=== PATIENT | male | born 1960 | race African-American/Black ===

== ENCOUNTER 2016-12-20 12:03 | Emergency (ER) | payer MEDICARE, OTHER ==
[2016-12-20 12:06] VITALS: TEMP 97.6
[2016-12-20] MEDS ORDERED: ONDANSETRON 4 MG/2 ML VIAL IVP STA (12:35)
--- NOTE | 2016-12-20 12:39 | ED ---
Nausea/Vomiting/Diarrhea HPI - General Chief complaint: Nausea/Vomiting/Diarrhea Stated complaint: Vomiting Time Seen by Provider: 12/20/16 12:29 Source: EMS Mode of arrival: EMS Limitations: no limitations - History of Present Illness Initial comments: This patient is a 56-year-old man who presents to be evaluated for nausea, vomiting, diarrhea and some abdominal pain. He states that things came on around 8 this morning. He had a few episodes of vomiting and also couple episodes of watery diarrhea. The patient was concerned that he had eaten some chicken that may not been quite right yesterday. Patient states that since arriving here his symptoms have for the most part resolved. He is currently not having any pain or vomiting. MD complaint: nausea, vomiting, diarrhea, abdominal pain Onset/Timin -: hour(s) Description of Vomiting: food contents Description of Diarrhea: water Associated Abdominal Pain: Yes Location: periumbilical Radiation: none Severity: moderate Quality: cramping Consistency: now resolved Improves with: none Worsens with: none Context: possible food poisoning - Related Data Previous Rx's Medication Instructions Recorded Ondansetron Odt [Zofran ODT] 4 mg PO Q8HR PRN #10 tab 12/20/16 Allergies Allergy/AdvReac Type Severity Reaction Status Date / Time No Known Allergies Allergy Verified 12/20/16 13:28 Review of Systems ROS Statement: Those systems with pertinent positive or pertinent negative responses have been documented in the HPI. ROS Other: All systems not noted in ROS Statement are negative. Constitutional: Denies: fever, chills, weakness Respiratory: Denies: cough, dyspnea Cardiovascular: Denies: chest pain, palpitations, syncope Gastrointestinal: Reports: abdominal pain, nausea, vomiting, diarrhea. Denies: hematemesis, melena, hematochezia Genitourinary: Denies: dysuria, hematuria Musculoskeletal: Denies: back pain Skin: Denies: rash Neurological: Denies: headache, weakness, numbness Past Medical History Past Medical History: No Reported History History of Any Multi-Drug Resistant Organisms: None Reported Past Surgical History: No Surgical Hx Reported Past Psychological History: No Psychological Hx Reported Smoking Status: Current every day smoker Past Alcohol Use History: None Reported Past Drug Use History: Marijuana General Exam Limitations: no limitations General appearance: alert, in no apparent distress Head exam: Present: atraumatic, normocephalic Eye exam: Present: normal appearance. Absent: scleral icterus, conjunctival injection Respiratory exam: Present: normal lung sounds bilaterally. Absent: respiratory distress, wheezes, rales, rhonchi, stridor Cardiovascular Exam: Present: regular rate, normal rhythm, normal heart sounds. Absent: systolic murmur, diastolic murmur, rubs, gallop GI/Abdominal exam: Present: soft, normal bowel sounds. Absent: distended, tenderness, guarding, rebound, mass, pulsatile mass, hernia Extremities exam: Present: normal inspection, normal capillary refill, other ( There is left leg edema which patient states is chronic). Absent: calf tenderness Back exam: Present: normal inspection. Absent: CVA tenderness (R), CVA tenderness (L) Skin exam: Present: warm, dry, intact, normal color. Absent: rash Course Vital Signs 12/20/16 12:04 Temperature 97.6 F Pulse Rate 69 Respiratory 18 Rate Blood Pressure 119/58 O2 Sat by Pulse 98 Oximetry Medical Decision Making - Lab Data Result diagrams: 12/20/16 12:43 12/20/16 12:43 Lab Results 12/20/16 12/20/16 12/20/16 Range/Units 12:43 12:43 12:48 WBC 5.0 (3.8-10.6) k/uL RBC 4.47 (4.30-5.90) m/uL Hgb 13.3 (13.0-17.5) gm/dL Hct 39.4 (39.0-53.0) % MCV 88.2 (80.0-100.0) fL MCH 29.8 (25.0-35.0) pg MCHC 33.8 (31.0-37.0) g/dL RDW 15.0 (11.5-15.5) % Plt Count 181 (150-450) k/uL Neutrophils % 59 % Lymphocytes % 21 % Monocytes % 5 % Eosinophils % 13 % Basophils % 1 % Neutrophils # 2.9 (1.3-7.7) k/uL Lymphocytes # 1.0 (1.0-4.8) k/uL Monocytes # 0.2 (0-1.0) k/uL Eosinophils # 0.7 (0-0.7) k/uL Basophils # 0.0 (0-0.2) k/uL Sodium 142 (137-145) mmol/L Potassium 4.0 (3.5-5.1) mmol/L Chloride 110 H (98-107) mmol/L Carbon Dioxide 22 (22-30) mmol/L Anion Gap 10 mmol/L BUN 14 (9-20) mg/dL Creatinine 0.87 (0.66-1.25) mg/dL Est GFR (MDRD) Af Amer >60 (>60 ml/min/1.73 sqM) Est GFR (MDRD) Non-Af >60 (>60 ml/min/1.73 sqM) Glucose 92 (74-99) mg/dL Calcium 9.4 (8.4-10.2) mg/dL Total Bilirubin 1.1 (0.2-1.3) mg/dL AST 19 (17-59) U/L ALT 22 (21-72) U/L Alkaline Phosphatase 66 (38-126) U/L Total Protein 7.3 (6.3-8.2) g/dL Albumin 4.0 (3.5-5.0) g/dL Amylase 54 (30-110) U/L Urine Color Yellow Urine Appearance Clear (Clear) Urine pH 5.0 (5.0-8.0) Ur Specific [place] 1.012 (1.001-1.035) Urine Protein Negative (Negative) Urine Glucose (UA) Negative (Negative) Urine Ketones Negative (Negative) Urine Blood Negative (Negative) Urine Nitrite Negative (Negative) Urine Bilirubin Negative (Negative) Urine Urobilinogen <2.0 (<2.0) mg/dL Ur Leukocyte Esterase Negative (Negative) Disposition Clinical Impression: Gastroenteritis Disposition: HOME SELF-CARE Condition: Fair Instructions: Acute Abdominal Pain (ED) Prescriptions: Ondansetron Odt [Zofran ODT] 4 mg PO Q8HR PRN #10 tab PRN Reason: Nausea Referrals: None,Stated [Primary Care Provider] - 1-2 days
[2016-12-20 12:58] LABS: Basophils % (A) 1 %; CH 29.3; CHCM 33.4; Eosinophils # (A) 0.7 k/uL (0-0.7); Eosinophils % (A) 13 %; HCT 39.4 % (39.0-53.0); HDW 3.11; HGB 13.3 gm/dL (13.0-17.5); Luc # (Auto) 0.11; Luc % (Auto) 2; Lymphocytes % (A) 21 %; MCH 29.8 pg (25.0-35.0); MCHC 33.8 g/dL (31.0-37.0); MCV 88.2 fL (80.0-100.0); Mean Platelet Volume 9.2; Monocytes # (A) 0.2 k/uL (0-1.0); Monocytes % (A) 5 %; Neutrophils # (A) 2.9 k/uL (1.3-7.7); Neutrophils % (A) 59 %; RBC 4.47 m/uL (4.30-5.90); WBC (Perox) 4.94
[2016-12-20 13:13] LABS: Appearance,Urine Clear (Clear); Bilirubin,Urine Negative (Negative); Glucose,Urine (UA) Negative (Negative); Ketones,Urine Negative (Negative); Leukocyte Esterase,Urine Negative (Negative); Nitrite,Urine Negative (Negative); Protein,Urine Negative (Negative); Specific Gravity,Urine 1.012 (1.001-1.035); UA Billing (MACRO vs. MICRO) CHEM; Urobilinogen,Urine <2.0 mg/dL (<2.0)
[2016-12-20 13:27] LABS: ALT 22 U/L (21-72); AST 19 U/L (17-59); Alkaline Phosphatase 66 U/L (38-126); Amylase 54 U/L (30-110); Anion Gap 10 mmol/L; Blood Urea Nitrogen 14 mg/dL (9-20); Calcium 9.4 mg/dL (8.4-10.2); Carbon Dioxide 22 mmol/L (22-30); Chloride 110 mmol/L (98-107); Glucose 92 mg/dL (74-99); Non-African American GFR(MDRD) >60 (>60 ml/min/1.73 sqM); Sodium 142 mmol/L (137-145); Total Bilirubin 1.1 mg/dL (0.2-1.3); Total Protein 7.3 g/dL (6.3-8.2)
[2016-12-20 14:44] VITALS: BP 121/58; PULSE 67; RESP 16
== END 2016-12-20 15:00 | disposition home or self-care (01) ==
LOC: EC 12:03
DX: K52.9 Noninfective gastroenteritis and colitis, unspecified (principal); F17.200 Nicotine dependence, unspecified, uncomplicated
CPT/HCPCS: 36415; 80053; 81003; 82150; 83690; 85025; 99284

== ENCOUNTER 2017-01-26 09:04 | Emergency (ER) | payer MEDICARE, OTHER ==
--- NOTE | 2017-01-26 10:09 | XR ---
EXAMINATION TYPE: XR ankle complete RT DATE OF EXAM: 01/26/2017 COMPARISON: NONE HISTORY: Pain TECHNIQUE: Frontal, lateral and oblique images of the right ankle are obtained. COMPARISON: None. FINDINGS: There is no acute fracture/dislocation evident. The joint spaces appear within normal valente its. The overlying soft tissue appears unremarkable. IMPRESSION: There is no acute fracture or dislocation seen.
--- NOTE | 2017-01-26 10:16 | ED ---
Lower Extremity Injury HPI - General Chief Complaint: Extremity Injury, Lower Stated Complaint: R Foot Pain Time Seen by Provider: 01/26/17 09:22 Source: patient, EMS, RN notes reviewed Mode of arrival: EMS Limitations: no limitations - History of Present Illness Initial Comments: Patient is 56-year-old male presents to the emergency room for evaluation of right ankle pain. Patient states that he broke his right ankle about a year ago. Patient states today he was mowing his lawn and felt a pop on the anterior portion of his right ankle. Patient states he is having 10 out of 10 pain. Patient states he feels like he broke his ankle again. Patient has numbness or tingling in his toes. Patient denies any other injuries during incident. - Related Data Home Medications Medication Instructions Recorded Confirmed Omeprazole Magnesium [Prilosec OTC] 20 mg PO DAILY PRN 01/26/17 01/26/17 Allergies Allergy/AdvReac Type Severity Reaction Status Date / Time No Known Allergies Allergy Verified 01/26/17 09:18 Review of Systems ROS Statement: Those systems with pertinent positive or pertinent negative responses have been documented in the HPI. ROS Other: All systems not noted in ROS Statement are negative. Past Medical History Past Medical History: No Reported History History of Any Multi-Drug Resistant Organisms: None Reported Past Surgical History: Orthopedic Surgery Additional Past Surgical History / Comment(s): left foot re-attachment Past Psychological History: No Psychological Hx Reported Smoking Status: Current every day smoker Past Alcohol Use History: None Reported Past Drug Use History: Marijuana General Exam - General Exam Comments Initial Comments: Sitting in exam room, no acute distress. Limitations: no limitations General appearance: alert, in no apparent distress Head exam: Present: atraumatic, normocephalic, normal inspection Eye exam: Present: normal appearance ENT exam: Present: normal exam Neck exam: Present: normal inspection Respiratory exam: Present: normal lung sounds bilaterally. Absent: respiratory distress Cardiovascular Exam: Present: regular rate, normal rhythm, normal heart sounds Right Ankle exam: Present: full ROM, tenderness (Tenderness on palpating over her anterior ankle joint) Foot/Toe exam: Present: full ROM. Absent: tenderness Neurovascular tendon exam: Present: no vascular compromise. Absent: pulse deficit (2+ dorsal pedal and posterior tibial pulses), abnormal cap refill ( Capillary refill less than 2 seconds) Back exam: Present: normal inspection Neurological exam: Present: alert, oriented X3, CN II-XII intact Psychiatric exam: Present: normal affect, normal mood Skin exam: Present: warm, dry, intact, normal color. Absent: rash Course Vital Signs 01/26/17 09:05 Temperature 98.0 F Pulse Rate 101 H Respiratory 18 Rate Blood Pressure 117/66 O2 Sat by Pulse 97 Oximetry Medical Decision Making - Medical Decision Making Patient is a 56-year-old male presents to the emergency room for evaluation of right ankle pain. Right ankle/foot x-ray negative for any acute fractures or dislocations. Patient advised to follow-up with primary care provider or economic specialist if symptoms are not improving in 7-10 days. Patient states she understands everything that was discussed with him. Return parameters discussed. Case discussed with Dr. Lizarraga. - Radiology Data Radiology results: report reviewed, image reviewed Disposition Clinical Impression: Right ankle sprain Disposition: HOME SELF-CARE Condition: Good Instructions: Ankle Sprain (ED) Additional Instructions: Rest, elevate and ice on and off for 10-15 minutes for the next 24-48 hours. Tylenol or Motrin as needed for pain. Nonweightbearing for the next 1-2 days. Please follow-up with economic specialist or primary care provider in 7-10 days if symptoms are not improving. If new symptoms develop or symptoms worsen, please return to the ER. Referrals: Farshad Leyva MD [Primary Care Provider] - 1-2 days Time of Disposition: 10:44
--- NOTE | 2017-01-26 10:40 | XR ---
EXAMINATION TYPE: XR foot complete RT DATE OF EXAM: 01/26/2017 CLINICAL HISTORY: pain TECHNIQUE: Frontal, lateral and oblique images of the right foot are obtained. COMPARISON: 04/05/2011 FINDINGS: There is no acute fracture/dislocation evident. The joint spaces appear within normal valente its. The overlying soft tissue appears unremarkable. IMPRESSION: There is no acute fracture or dislocation. ICD 10 NO FRACTURE, INITIAL EVALUATION
[2017-01-26 11:07] VITALS: BP 110/50; PULSE 86; RESP 16; TEMP 97.5
== END 2017-01-26 11:07 | disposition home or self-care (01) ==
LOC: EC 09:04
DX: S93.401A Sprain of unspecified ligament of right ankle, initial encounter (principal); F17.200 Nicotine dependence, unspecified, uncomplicated; X50.9XXA Other and unspecified overexertion or strenuous movements or postures, initial encounter; Y93.H2 Activity, gardening and landscaping
CPT/HCPCS: 73610; 73630; 99283; L4350

== ENCOUNTER 2017-08-19 20:51 | Emergency (ER) | payer MEDICARE, OTHER ==
--- NOTE | 2017-08-19 21:47 | XR ---
EXAMINATION TYPE: XR KUB DATE OF EXAM: 08/19/2017 COMPARISON: 11/21/2015 HISTORY: Pain TECHNIQUE: Single supine KUB image of the abdomen is obtained FINDINGS: Small bowel demonstrates no evidence for dilatation or air fluid levels. Gas and fecal material is seen in non-distended colon. No convincing evidence for pneumoperitoneum. No unusual calcifications. The lung bases are clear. The osseous structures are intact. IMPRESSION: 1. Overall nonobstructive bowel gas pattern.
[2017-08-19 22:01] LABS: Basophils # (A) 0.1 k/uL (0-0.2); Basophils % (A) 1 %; Eosinophils # (A) 0.3 k/uL (0-0.7); Eosinophils % (A) 7 %; HCT 33.8 % (39.0-53.0); Lymphocytes # (A) 1.2 k/uL (1.0-4.8); Lymphocytes % (A) 27 %; MCH 28.2 pg (25.0-35.0); MCHC 32.6 g/dL (31.0-37.0); MCV 86.6 fL (80.0-100.0); Mean Platelet Volume 8.3; Monocytes # (A) 0.3 k/uL (0-1.0); Monocytes % (A) 6 %; Neutrophils # (A) 2.7 k/uL (1.3-7.7); Neutrophils % (A) 58 %; Platelet Count 264 k/uL (150-450); RDW 14.6 % (11.5-15.5); WBC 4.6 k/uL (3.8-10.6)
[2017-08-19] MEDS ORDERED: MORPHINE SULFATE 4 MG/ML SYRINGE IVP ONE (22:07)
[2017-08-19] MEDS ORDERED: ONDANSETRON 4 MG/2 ML VIAL IVP STA (22:08)
[2017-08-19 22:11] LABS: ALT 22 U/L (21-72); AST 22 U/L (17-59); Albumin 3.5 g/dL (3.5-5.0); Alkaline Phosphatase 65 U/L (38-126); Amylase 45 U/L (30-110); Anion Gap 7 mmol/L; Blood Urea Nitrogen 9 mg/dL (9-20); C Reactive Protein 10.8 mg/L (<10.0); Calcium 9.2 mg/dL (8.4-10.2); Carbon Dioxide 27 mmol/L (22-30); Chloride 112 mmol/L (98-107); Glucose 90 mg/dL (74-99); Lipase 194 U/L (23-300); Potassium 4.3 mmol/L (3.5-5.1); Sodium 146 mmol/L (137-145); Total Bilirubin 0.9 mg/dL (0.2-1.3); Total Protein 6.7 g/dL (6.3-8.2)
[2017-08-19 22:15] VITALS: RESP 18
[2017-08-19 22:16] LABS: Appearance,Urine Clear (Clear); Bilirubin,Urine Negative (Negative); Blood,Urine Negative (Negative); Color,Urine Yellow; Glucose,Urine (UA) Negative (Negative); Ketones,Urine Negative (Negative); Leukocyte Esterase,Urine Negative (Negative); Nitrite,Urine Negative (Negative); PH, Urine 5.5 (5.0-8.0); Protein,Urine Negative (Negative); Specific Gravity,Urine 1.009 (1.001-1.035)
--- NOTE | 2017-08-19 23:24 | ED ---
Abdominal Pain HPI - General Chief Complaint: Abdominal Pain Stated Complaint: NVD Time Seen by Provider: 08/19/17 21:12 Source: patient, EMS Mode of arrival: EMS Limitations: no limitations - History of Present Illness Initial Comments: 56 years old male had ongoing diarrhea for about a week now he takes a medication to take care of his diarrhea was prescribed by his doctor which he does not have with him then he threw up a few times today and he said he had surgery for gallbladder is still having his appendix pain is on the upper abdomen and pain comes and goes denies any fever no chills diarrhea has resolved now area denies any chest pain or shortness of breath no frequency urgency dysuria no signs of TIA or CVA - Related Data Home Medications Medication Instructions Recorded Confirmed Albuterol Inhaler [Ventolin Hfa 1 - 2 puff INHALATION RT-Q6H PRN 08/19/17 Inhaler] Diphenox-Atrop 2.5-0.025 mg 1 - 2 tab PO QID PRN 08/19/17 08/19/17 [Lomotil] Previous Rx's Medication Instructions Recorded Ondansetron [Zofran] 4 mg PO Q8HR PRN #10 tab 08/19/17 Allergies Allergy/AdvReac Type Severity Reaction Status Date / Time No Known Allergies Allergy Verified 08/19/17 21:03 Review of Systems ROS Statement: Those systems with pertinent positive or pertinent negative responses have been documented in the HPI. ROS Other: All systems not noted in ROS Statement are negative. Past Medical History Past Medical History: No Reported History History of Any Multi-Drug Resistant Organisms: None Reported Past Surgical History: Orthopedic Surgery Additional Past Surgical History / Comment(s): left foot re-attachment Past Psychological History: No Psychological Hx Reported Smoking Status: Former smoker Past Alcohol Use History: None Reported Past Drug Use History: Marijuana General Exam - General Exam Comments Initial Comments: General: The patient is awake and alert, in no distress, and does not appear acutely ill. Skin: Skin is warm and dry and no rashes or lesions are noted. Eye: Pupils are equal, round and reactive to light, extra-ocular movements are intact; there is normal conjunctiva bilaterally. Ears, nose, mouth and throat: There are moist mucous membranes and no oral lesions. Neck: The neck is supple, there is no tenderness or JVD. Cardiovascular: There is a regular rate and rhythm. No murmur, rub or gallop is appreciated. Respiratory: To auscultation bilateral, no wheezing no rhonchi no distress respiratory lopez noticed Gastrointestinal , mildly tender in epigastric area and mildly tender in the right upper quadrant area also is a positive no guarding no rebounds no hepatosplenomegaly noticed Back: There is no tenderness to palpation in the midline. There is no obvious deformity. Musculoskeletal: Normal ROM, no tenderness, There is no pedal edema. There is no calf tenderness or swelling. No cords were appreciated. Neurological: CN II-XII intact, Cranial nerves III through XII are intact. There are no obvious motor or sensory deficits. Coordination appears grossly intact. Speech is normal. Psychiatric: Cooperative, appropriate mood & affect, normal judgment. Limitations: no limitations Course Vital Signs 08/19/17 08/19/17 20:52 22:14 Temperature 98.2 F Pulse Rate 81 81 Respiratory 20 18 Rate Blood Pressure 130/74 135/64 O2 Sat by Pulse 100 99 Oximetry Labs are reviewed his CBC, his normal C-reactive protein is 10 urinalysis and compress metabolic panel are unremarkable, KUB is nonobstructive he was instructed to come back if he develops high fever chills at this point he is pain-free he was advised to take no medications for anything at this point and return to ER if his high fever chills or pain gets worse. Medical Decision Making - Lab Data Result diagrams: 08/19/17 21:31 08/19/17 21:31 Lab Results 08/19/17 08/19/17 08/19/17 Range/Units 21:31 21:31 22:04 WBC 4.6 (3.8-10.6) k/uL RBC 3.90 L (4.30-5.90) m/uL Hgb 11.0 L (13.0-17.5) gm/dL Hct 33.8 L (39.0-53.0) % MCV 86.6 (80.0-100.0) fL MCH 28.2 (25.0-35.0) pg MCHC 32.6 (31.0-37.0) g/dL RDW 14.6 (11.5-15.5) % Plt Count 264 (150-450) k/uL Neutrophils % 58 % Lymphocytes % 27 % Monocytes % 6 % Eosinophils % 7 % Basophils % 1 % Neutrophils # 2.7 (1.3-7.7) k/uL Lymphocytes # 1.2 (1.0-4.8) k/uL Monocytes # 0.3 (0-1.0) k/uL Eosinophils # 0.3 (0-0.7) k/uL Basophils # 0.1 (0-0.2) k/uL Sodium 146 H (137-145) mmol/L Potassium 4.3 (3.5-5.1) mmol/L Chloride 112 H (98-107) mmol/L Carbon Dioxide 27 (22-30) mmol/L Anion Gap 7 mmol/L BUN 9 (9-20) mg/dL Creatinine 0.90 (0.66-1.25) mg/dL Est GFR (MDRD) Af Amer >60 (>60 ml/min/1.73 sqM) Est GFR (MDRD) Non-Af >60 (>60 ml/min/1.73 sqM) Glucose 90 (74-99) mg/dL Calcium 9.2 (8.4-10.2) mg/dL Total Bilirubin 0.9 (0.2-1.3) mg/dL AST 22 (17-59) U/L ALT 22 (21-72) U/L Alkaline Phosphatase 65 (38-126) U/L C-Reactive Protein 10.8 H (<10.0) mg/L Total Protein 6.7 (6.3-8.2) g/dL Albumin 3.5 (3.5-5.0) g/dL Amylase 45 (30-110) U/L Lipase 194 (23-300) U/L Urine Color Yellow Urine Appearance Clear (Clear) Urine pH 5.5 (5.0-8.0) Ur Specific [place] 1.009 (1.001-1.035) Urine Protein Negative (Negative) Urine Glucose (UA) Negative (Negative) Urine Ketones Negative (Negative) Urine Blood Negative (Negative) Urine Nitrite Negative (Negative) Urine Bilirubin Negative (Negative) Urine Urobilinogen 3.0 (<2.0) mg/dL Ur Leukocyte Esterase Negative (Negative) Disposition Clinical Impression: Nausea and vomiting Disposition: HOME SELF-CARE Condition: Good Instructions: Acute Nausea and Vomiting (ED) Prescriptions: Ondansetron [Zofran] 4 mg PO Q8HR PRN #10 tab PRN Reason: Nausea Referrals: Farshad Leyva MD [Primary Care Provider] - 1-2 days
[2017-08-19 23:37] VITALS: BP 123/66; PULSE 71; TEMP 98.6
== END 2017-08-19 23:36 | disposition home or self-care (01) ==
LOC: EC 20:51
DX: R11.2 Nausea with vomiting, unspecified (principal); R10.13 Epigastric pain; R10.11 Right upper quadrant pain; Z87.891 Personal history of nicotine dependence
CPT/HCPCS: 36415; 80053; 82150; 83690; 85025; 86140; 81003; 74018; 99284; 96374; 96375; J2270; J2405

== ENCOUNTER 2021-05-20 17:20 | Emergency (ER) | payer MEDICARE, OTHER ==
[2021-05-20 19:14] VITALS: TEMP 98
--- NOTE | 2021-05-20 20:13 | XR ---
EXAMINATION TYPE: XR forearm LT DATE OF EXAM: 05/20/2021 COMPARISON: NONE HISTORY: Fall. Pain TECHNIQUE: 3 views FINDINGS: There is deformity of the distal ulna consistent with an old healed fracture. I see no acut e fracture nor dislocation. Elbow joint appears intact. IMPRESSION: No acute abnormality of the left forearm.
--- NOTE | 2021-05-20 20:29 | ED ---
General Adult HPI - General Chief complaint: Neck Pain/Injury Stated complaint: fall Time Seen by Provider: 05/20/21 20:01 Source: patient, RN notes reviewed, old records reviewed (Previous CT) Mode of arrival: wheelchair Limitations: no limitations - History of Present Illness Initial comments: Patient is a pleasant 60-year-old male presenting to the emergency apartment for discomfort following a fall. Incident occurred 2 weeks ago. Patient was walking his dog and tripped of the leash. Patient complains of discomfort of his left forearm. Patient also complains of some discomfort of his neck that is the most bothersome. Patient states there is mild discomfort of the ribs. No dyspnea. No loss of consciousness. Patient states he did go to the chiropractor and had x-rays done on his forearm there were reported to him as normal. Patient states discomfort has been persistent. - Related Data Home Medications Medication Instructions Recorded Confirmed Albuterol Inhaler (Mhu) [Ventolin 1 - 2 puff INHALATION RT-Q6H PRN 08/19/17 08/19/17 Hfa Inhaler] Diphenox-Atrop 2.5-0.025 mg 1 - 2 tab PO QID PRN 08/19/17 08/19/17 [Lomotil] Previous Rx's Medication Instructions Recorded Ondansetron [Zofran] 4 mg PO Q8HR PRN #10 tab 08/19/17 Cyclobenzaprine [Flexeril] 10 mg PO TID PRN #12 tablet 05/20/21 Allergies Allergy/AdvReac Type Severity Reaction Status Date / Time No Known Allergies Allergy Verified 05/20/21 19:14 Review of Systems ROS Statement: Those systems with pertinent positive or pertinent negative responses have been documented in the HPI. ROS Other: All systems not noted in ROS Statement are negative. Constitutional: Denies: fever Eyes: Denies: eye pain ENT: Denies: ear pain Respiratory: Denies: cough Cardiovascular: Denies: chest pain Endocrine: Denies: fatigue Gastrointestinal: Denies: abdominal pain Genitourinary: Denies: dysuria Musculoskeletal: Denies: back pain Skin: Denies: rash Neurological: Denies: headache, weakness Past Medical History Past Medical History: No Reported History History of Any Multi-Drug Resistant Organisms: None Reported Past Surgical History: Orthopedic Surgery Additional Past Surgical History / Comment(s): left foot re-attachment Past Psychological History: No Psychological Hx Reported Smoking Status: Current every day smoker Past Alcohol Use History: None Reported Past Drug Use History: Marijuana General Exam Limitations: no limitations General appearance: alert, in no apparent distress Head exam: Present: atraumatic, normocephalic Eye exam: Present: normal appearance, PERRL Neck exam: Present: normal inspection, tenderness (Mild diffuse posterior cervical tenderness) Respiratory exam: Present: normal lung sounds bilaterally. Absent: chest wall tenderness Cardiovascular Exam: Present: regular rate, normal rhythm GI/Abdominal exam: Present: soft. Absent: tenderness Extremities exam: Present: other (Left arm with Cm bandage, mild diffuse tenderness. No swelling. Distally the patient is neurovascular intact.) Back exam: Present: normal inspection. Absent: tenderness, vertebral tenderness Neurological exam: Present: alert, CN II-XII intact. Absent: motor sensory deficit Psychiatric exam: Present: normal affect, normal mood Skin exam: Present: normal color Course Vital Signs 05/20/21 05/20/21 19:08 21:33 Temperature 98.0 F 98.0 F Pulse Rate 112 H 86 Respiratory 18 20 Rate Blood Pressure 118/71 107/61 O2 Sat by Pulse 96 99 Oximetry Medical Decision Making - Medical Decision Making Patient reevaluated and updated - Radiology Data Radiology results: image reviewed (Left forearm x-ray shows no acute process. Cervical spine and chest x-ray also reviewed) Disposition Clinical Impression: Strain of neck muscle, Fall Disposition: HOME SELF-CARE Condition: Stable Instructions (If sedation given, give patient instructions): Cervical Strain (ED) Additional Instructions: Please follow-up with primary care physician in the next day or 2 for recheck. Return for weakness, difficulty breathing, worsening or changing symptoms or other concerns. Prescriptions: Cyclobenzaprine [Flexeril] 10 mg PO TID PRN #12 tablet PRN Reason: Pain Is patient prescribed a controlled substance at d/c from ED?: No Referrals: Farshad Leyva MD [Primary Care Provider] - 1-2 days Time of Disposition: 21:44
[2021-05-20 21:35] VITALS: BP 107/61; PULSE 86; RESP 20
[2021-05-20] MEDS ORDERED: MORPHINE SULFATE 4 MG/ML SYRINGE IM STA (21:45)
[2021-05-20] MEDS ORDERED: KETOROLAC 15 MG/ML 1 ML VIAL IM STA (21:45)
--- NOTE | 2021-05-20 21:48 | XR ---
EXAMINATION TYPE: XR cervical spine comp DATE OF EXAM: 05/20/2021 COMPARISON: NONE HISTORY: Neck pain TECHNIQUE: 6 views FINDINGS: There is some straightening of the cervical spine. There is degenerative disc space narrowi ng at C5-6 and C6-7. Posterior elements are intact. Atlantoaxial facet joint is normal. There are no cervical ribs. There is no evidence of compression fracture. IMPRESSION: Mild spondylotic changes in the lower cervical spine. No fracture.
--- NOTE | 2021-05-20 21:50 | XR ---
EXAMINATION TYPE: XR ribs RT w pa chest xray DATE OF EXAM: 05/20/2021 COMPARISON: NONE HISTORY: Fall. Pain TECHNIQUE: 6 views FINDINGS: There is coarse interstitial infiltrate in the right lung heart size is normal. There is no heart failure. There are clips at the right axilla. I see no evidence of a rib fracture. The right shoulder appears intact. There is no pneumothorax. IMPRESSION: No rib fracture seen. Interstitial infiltrate in the right lung could relate to some pulm onary fibrosis. Normal heart.
== END 2021-05-20 23:10 | disposition home or self-care (01) ==
LOC: EC 17:20
DX: S16.1XXA Strain of muscle, fascia and tendon at neck level, initial encounter (principal); M79.631 Pain in right forearm; F17.200 Nicotine dependence, unspecified, uncomplicated; F12.90 Cannabis use, unspecified, uncomplicated; Z79.51 Long term (current) use of inhaled steroids; Z79.899 Other long term (current) drug therapy; W01.0XXA Fall on same level from slipping, tripping and stumbling without subsequent striking against object, initial encounter; Y93.01 Activity, walking, marching and hiking
CPT/HCPCS: 71101; 72050; 73090; 99284; 96372 ×2; J2270; J1885

== ENCOUNTER → 2021-07-24 | Outpatient (CLI) | payer MEDICARE | END | disposition home or self-care (01) | LOC: RADUSWWP 13:46 | PROVIDERS: ATTEND Thoracic Surgery (Cardiothoracic Vascular Surgery) | DX: I70.243 Atherosclerosis of native arteries of left leg with ulceration of ankle (principal); L97.322 Non-pressure chronic ulcer of left ankle with fat layer exposed; F17.210 Nicotine dependence, cigarettes, uncomplicated | CPT/HCPCS: 93923 ==

== ENCOUNTER 2021-08-09 22:41 | Emergency (ER) | payer MEDICARE ==
[2021-08-09 22:44] VITALS: BP 135/82; PULSE 89; RESP 20; TEMP 97
--- NOTE | 2021-08-09 23:13 | ED ---
ENT HPI - General Chief complaint: Dental/Oral Stated complaint: Dental Pain Time Seen by Provider: 08/09/21 22:50 Source: patient, RN notes reviewed Mode of arrival: EMS Limitations: no limitations - History of Present Illness Initial comments: This is a pleasant 60-year-old male coming to the ER complaining of lower left dental pain which is bothering him for several days. Patient states is getting worse. Throbbing in nature. Exacerbated by chewing and eating. Also exacerbated by hot and cold liquids. Patient has an appointment at [facility] coming out. Patient not on antibiotics. No difficulty swallowing. No headache, no fever or chills, no changes in vision or hearing, no sore throat or difficulty with speech, no neck pain, no chest pain or shortness of breath, no abdominal pain, no nausea or vomiting, no changes in urination or bowel movements, no numbness or tingling, no extremity pain, no skin rashes or lesions. - Related Data Home Medications Medication Instructions Recorded Confirmed Albuterol Inhaler (Mhu) [Ventolin 1 - 2 puff INHALATION RT-Q6H PRN 08/19/17 08/19/17 Hfa Inhaler] Diphenox-Atrop 2.5-0.025 mg 1 - 2 tab PO QID PRN 08/19/17 08/19/17 [Lomotil] Previous Rx's Medication Instructions Recorded Ondansetron [Zofran] 4 mg PO Q8HR PRN #10 tab 08/19/17 Cyclobenzaprine [Flexeril] 10 mg PO TID PRN #12 tablet 05/20/21 Penicillin V Potassium [Pen Vee K] 500 mg PO QID #40 tablet 08/10/21 Allergies Allergy/AdvReac Type Severity Reaction Status Date / Time No Known Allergies Allergy Verified 08/09/21 22:43 Review of Systems ROS Statement: Those systems with pertinent positive or pertinent negative responses have been documented in the HPI. ROS Other: All systems not noted in ROS Statement are negative. Past Medical History Past Medical History: No Reported History History of Any Multi-Drug Resistant Organisms: None Reported Past Surgical History: Orthopedic Surgery Additional Past Surgical History / Comment(s): left foot re-attachment Past Psychological History: No Psychological Hx Reported Smoking Status: Current every day smoker Past Alcohol Use History: None Reported Past Drug Use History: Marijuana General Exam - General Exam Comments Initial Comments: Mild distress secondary to dental pain patient does not appear to be ill or toxic. Limitations: no limitations General appearance: alert, in distress Head exam: Present: atraumatic, normocephalic, normal inspection Eye exam: Present: normal appearance, PERRL, EOMI. Absent: scleral icterus, conjunctival injection, periorbital swelling ENT exam: Present: mucous membranes moist, TM's normal bilaterally, normal external ear exam. Absent: mucous membranes dry Expanded Mouth exam: Present: normal external inspection. Absent: drooling, trismus, muffled voice, tongue normal, tongue elevation, laceration Teeth exam: Present: dental caries, dental tenderness # (Tooth #21 and 22), gingival enlargement. Absent: normal inspection Neck exam: Present: normal inspection. Absent: tenderness, meningismus, lymphadenopathy Respiratory exam: Present: normal lung sounds bilaterally. Absent: respiratory distress, wheezes, rales, rhonchi, stridor Cardiovascular Exam: Present: regular rate, normal rhythm, normal heart sounds. Absent: systolic murmur, diastolic murmur, rubs, gallop, clicks GI/Abdominal exam: Present: soft, normal bowel sounds. Absent: distended, tenderness, guarding, rebound, rigid Extremities exam: Present: normal inspection, full ROM, normal capillary refill. Absent: tenderness, pedal edema, joint swelling, calf tenderness Back exam: Present: normal inspection Neurological exam: Present: alert, oriented X3, CN II-XII intact Psychiatric exam: Present: normal affect, normal mood Skin exam: Present: warm, dry, intact, normal color. Absent: rash Course Vital Signs 08/09/21 22:42 Temperature 97.0 F L Pulse Rate 89 Respiratory 20 Rate Blood Pressure 135/82 O2 Sat by Pulse 96 Oximetry Procedures - Nerve Block Consent Obtained: verbal consent Local Anesthetic Used: Marcaine 0.5% Side: left Nerve Blocks: other (Inferior alveolar nerve block) Intraoral Nerve Block: inferior alveolar Procedure Successful: Yes Complications: none Patient Tolerated Procedure: well Medical Decision Making - Medical Decision Making Patient received pain medication here dental block performed. Adequate anesthesia. Patient be placed on Pen-Vee K 500 mg 4 times a day. Patient can take Tylenol in addition to ibuprofen at home. Follow up with aspirin dental as planned. Patient did not appear to be systemically ill. Counseled on smoking cessation. Patient was told to return to the ER for any signs or symptoms worsen. Told to return immediately if any other problems arise. All questions answered. Treatment plan discussed. Patient in agreement Disposition Clinical Impression: Dental abscess, Dental caries Disposition: HOME SELF-CARE Condition: Good Instructions (If sedation given, give patient instructions): Dental Abscess (ED), Toothache (ED) Additional Instructions: Patient was told to return to the ER for any signs or symptoms worsen. Told to return immediately if any other problems arise. All questions answered. Treatment plan discussed. Patient in agreement Prescriptions: Penicillin V Potassium [Pen Vee K] 500 mg PO QID #40 tablet Is patient prescribed a controlled substance at d/c from ED?: No Referrals: Farshad Leyva MD [Primary Care Provider] - 1-2 days Time of Disposition: 00:16
[2021-08-09] MEDS ORDERED: HYDROcodone/APAP 5-325MG 1 EACH TAB PO STA (23:35)
[2021-08-09] MEDS ORDERED: BUPIVACAINE (PF) 0.5% 30 ML VIAL SQ STA (23:35)
[2021-08-09] MEDS ORDERED: PENICILLIN V POTASSIUM 250 MG TAB PO STA (23:35)
== END 2021-08-10 00:34 | disposition home or self-care (01) ==
LOC: EC 22:41
DX: K04.7 Periapical abscess without sinus (principal); K02.9 Dental caries, unspecified; F17.200 Nicotine dependence, unspecified, uncomplicated; F12.90 Cannabis use, unspecified, uncomplicated; Z79.51 Long term (current) use of inhaled steroids; Z79.899 Other long term (current) drug therapy
CPT/HCPCS: 64450; 99283

== ENCOUNTER 2022-05-22 09:49 | Emergency (ER) | payer BC, OTHER ==
[2022-05-22 10:11] VITALS: BP 145/85; TEMP 98
--- NOTE | 2022-05-22 10:25 | ED ---
General Adult HPI - General Chief complaint: Skin/Abscess/Foreign Body Stated complaint: Abscess in Mouth Time Seen by Provider: 05/22/22 10:13 Source: patient Mode of arrival: ambulatory Limitations: no limitations - History of Present Illness Initial comments: Patient is a 61-year-old male who presents with concern for abscess and his mouth. Patient states he felt a bump on the roof of his mouth 6 days ago which has gotten bigger. He reports mild pain. Not taking any medication for pain. Denies fever, chills, trouble swallowing, trouble breathing. States he has had trouble seeing his dentist. - Related Data Home Medications Medication Instructions Recorded Confirmed Albuterol Inhaler [Ventolin Hfa 1 - 2 puff INHALATION RT-Q6H PRN 08/19/17 08/19/17 Inhaler] Diphenox-Atrop 2.5-0.025 mg 1 - 2 tab PO QID PRN 08/19/17 08/19/17 [Lomotil] Previous Rx's Medication Instructions Recorded Ondansetron [Zofran] 4 mg PO Q8HR PRN #10 tab 08/19/17 Cyclobenzaprine [Flexeril] 10 mg PO TID PRN #12 tablet 05/20/21 Acetaminophen [Tylenol] 500 mg PO Q4-6H PRN #24 tab 08/10/21 Penicillin V Potassium [Pen Vee K] 500 mg PO QID #40 tablet 08/10/21 Amoxic-Pot Clav 875-125Mg 1 tab PO BID 7 Days #14 tab 05/22/22 [Augmentin 875-125] Ibuprofen [Motrin] 800 mg PO Q6HR PRN #30 tab 05/22/22 Allergies Allergy/AdvReac Type Severity Reaction Status Date / Time No Known Allergies Allergy Verified 05/22/22 10:11 Review of Systems ROS Statement: Those systems with pertinent positive or pertinent negative responses have been documented in the HPI. ROS Other: All systems not noted in ROS Statement are negative. Past Medical History Past Medical History: No Reported History History of Any Multi-Drug Resistant Organisms: None Reported Past Surgical History: Orthopedic Surgery Additional Past Surgical History / Comment(s): left foot re-attachment Past Psychological History: No Psychological Hx Reported Smoking Status: Current every day smoker Past Alcohol Use History: None Reported Past Drug Use History: Marijuana General Exam Limitations: no limitations General appearance: alert, in no apparent distress Head exam: Present: atraumatic, normocephalic, normal inspection ENT exam: Present: other (bony lump in right roof of mouth. No surrounding erythema, swelling, drainage. No fluctuance. No drainable abscess.) Respiratory exam: Present: normal lung sounds bilaterally. Absent: respiratory distress, wheezes, rales, rhonchi, stridor Cardiovascular Exam: Present: regular rate, normal rhythm, normal heart sounds. Absent: systolic murmur, diastolic murmur, rubs, gallop, clicks Neurological exam: Present: alert, oriented X3, CN II-XII intact Psychiatric exam: Present: normal affect, normal mood Skin exam: Present: warm, dry, intact, normal color. Absent: rash Course Vital Signs 05/22/22 10:08 Temperature 98 F Pulse Rate 111 H Respiratory 20 Rate Blood Pressure 145/85 O2 Sat by Pulse 99 Oximetry Medical Decision Making - Medical Decision Making This is a 61-year-old male presenting for evaluation of possible abscess.There is bony lump in right roof of mouth. No surrounding erythema, swelling, drainage. No fluctuance. No drainable abscess. Patient will be placed on Augmentin prophylactically with instruction to follow- up with his dentist. Dr. March is my attending. Disposition Clinical Impression: Dental implant pain Disposition: HOME SELF-CARE Condition: Good Instructions (If sedation given, give patient instructions): Toothache (ED) Additional Instructions: Take medication as directed. It is very important you follow-up with a dentist. Return to the emergency department x-rays new, concerning, or worsening symptoms. Prescriptions: Amoxic-Pot Clav 875-125Mg [Augmentin 875-125] 1 tab PO BID 7 Days #14 tab Ibuprofen [Motrin] 800 mg PO Q6HR PRN #30 tab PRN Reason: Pain Is patient prescribed a controlled substance at d/c from ED?: No Referrals: Farshad Leyva MD [Primary Care Provider] - 1-2 days
[2022-05-22 10:48] VITALS: PULSE 97; RESP 18
== END 2022-05-22 10:46 | disposition home or self-care (01) ==
LOC: EC 09:49
DX: K08.89 Other specified disorders of teeth and supporting structures (principal); F17.200 Nicotine dependence, unspecified, uncomplicated; F12.90 Cannabis use, unspecified, uncomplicated
CPT/HCPCS: 99283

== ENCOUNTER → 2023-07-07 | Outpatient (CLI) | payer MEDICARE ==
--- NOTE | 2023-07-07 14:36 | US ---
EXAMINATION TYPE: US venous doppler duplex LE LT DATE OF EXAM: 07/07/2023 1:33 PM COMPARISON: NONE CLINICAL INDICATION: Male, 62 years old with history of L97.322 NON-PRESSURE CHRONIC ULCER OF LEFT AN KLE W; Non-healing wound left lateral ankle, pt a [facility] patient SIDE PERFORMED: Left TECHNIQUE: The lower extremity deep venous system is examined utilizing real time linear array sonog ander with graded compression, doppler sonography and color-flow sonography. VESSELS IMAGED: Common Femoral Vein Deep Femoral Vein Greater Saphenous Vein * Femoral Vein Popliteal Vein Small Saphenous Vein * Proximal Calf Veins (* superficial vessels) Left Leg: Negative for DVT IMPRESSION: Grayscale, color doppler, spectral doppler imaging performed of the deep veins of the lo wer extremities. There is normal flow, compressibility, vascular waveforms.
--- NOTE | 2023-07-07 14:36 | US ---
EXAMINATION TYPE: US arterial LE single level DATE OF EXAM: 07/07/2023 2:04 PM CLINICAL INDICATION: Male, 62 years old with history of L97.322 NON-PRESSURE CHRONIC ULCER OF LEFT AN KLE W; Non-healing wound left lateral ankle History of: Smoker: Yes Hypertension: No Diabetic: No Hyperlipidemia: No TIA/CVA: No Previous Vascular Surgery: No Vascular Ulcers: Left Claudication: No Doppler Waveforms: Right: None recorded Left: Monophasic Right Brachial Pressure: 121 Left Brachial Pressure: 129 Ankle-Brachial Indices: Right: 0.95 Left: 0.96 Toe Brachial Indices: Left: 0.8 IMPRESSION: Ankle brachial indices within normal limits bilaterally.
== END | disposition home or self-care (01) ==
LOC: RADUSWWP 12:59
PROVIDERS: ATTEND Nurse Practitioner Family
DX: L97.322 Non-pressure chronic ulcer of left ankle with fat layer exposed (principal); I70.243 Atherosclerosis of native arteries of left leg with ulceration of ankle; F17.210 Nicotine dependence, cigarettes, uncomplicated
CPT/HCPCS: 93922

== ENCOUNTER → 2023-12-17 | Outpatient (CLI) | payer MEDICARE, SELFPAY ==
[2023-12-17 15:57] LABS: Basophils # (A) 0.06 X 10*3/uL (0.00-0.10); Basophils % (A) 0.9 %; Eosinophils # (A) 0.55 X 10*3/uL (0.04-0.35); Eosinophils % (A) 8.5 %; HCT 36.1 % (39.6-50.0); HGB 11.5 g/dL (13.0-17.0); Lymphocytes # (A) 1.92 X 10*3/uL (0.90-5.00); Lymphocytes % (A) 29.6 %; MCH 26.1 pg (27.0-32.0); MCHC 31.9 g/dL (32.0-37.0); MCV 81.9 FL (80.0-97.0); Mean Platelet Volume 12.7 FL (9.5-12.2); Monocytes # (A) 0.45 X 10*3/uL (0.20-1.00); Monocytes % (A) 6.9 %; NRBC Per 100 WBC 0 X 10*3/uL (0.00-0.01); Neutrophils # (A) 3.49 X 10*3/uL (1.80-7.70); Neutrophils % (A) 53.8 %; Platelet Count 250 X 10*3/uL (140-440); RBC 4.41 X 10*6/uL (4.40-5.60); RDW 15.1 % (11.5-14.5); WBC 6.49 X 10*3/uL (4.50-10.00)
[2023-12-17 16:06] LABS: ALT 16 U/L (10-49); AST 17 U/L (14-35)
[2023-12-17 16:28] LABS: Hepatitis B Surface Antigen Nonreactive (Nonreactive); Hepatitis C IgG Antibody Nonreactive (Nonreactive)
[2023-12-17 16:31] LABS: Hepatitis B Surface AB- Quant 3.5 mIU/mL
== END | disposition home or self-care (01) ==
LOC: LABWHC1 10:05
PROVIDERS: ATTEND Dermatology MOHS-Micrographic Surgery
DX: L20.89 Other atopic dermatitis (principal); L28.1 Prurigo nodularis; Z79.899 Other long term (current) drug therapy
CPT/HCPCS: 36415; 84450; 84460; 85025; 86704; 86706; 86803; 87340

== ENCOUNTER 2024-01-02 13:04 | Emergency (ER) | payer MEDICARE, SELFPAY ==
[2024-01-02 13:21] VITALS: BP 110/60; PULSE 68; RESP 18; TEMP 97.9
--- NOTE | 2024-01-02 13:22 | ED ---
General Adult HPI - General Stated complaint: Abd labs Time Seen by Provider: 01/02/24 13:15 - History of Present Illness Initial comments: Dictation was produced using [employer] dictation software. please excuse any grammatical, word or spelling errors. Chief Complaint: 63-year-old male presents to the emergency department for blood draw History of Present Illness: Patient 63-year-old male he is here in the emergency department today for blood draw. Patient states that he was told to come here due to the lab being closed. He is being considered for started medication. [employer] ordered some blood work. He does not know exactly what the blood work. No other complaints The ROS documented in this emergency department record has been reviewed and confirmed by me. Those systems with pertinent positive or negative responses have been documented in the HPI. All other systems are other negative and/or noncontributory. - Related Data Home Medications Medication Instructions Recorded Confirmed Albuterol Inhaler [Ventolin Hfa 1 - 2 puff INHALATION RT-Q6H PRN 08/19/17 08/19/17 Inhaler] Diphenox-Atrop 2.5-0.025 mg 1 - 2 tab PO QID PRN 08/19/17 08/19/17 [Lomotil] Previous Rx's Medication Instructions Recorded Ondansetron [Zofran] 4 mg PO Q8HR PRN #10 tab 08/19/17 Cyclobenzaprine [Flexeril] 10 mg PO TID PRN #12 tablet 05/20/21 Acetaminophen [Tylenol] 500 mg PO Q4-6H PRN #24 tab 08/10/21 Penicillin V Potassium [Pen Vee K] 500 mg PO QID #40 tablet 08/10/21 Amoxic-Pot Clav 875-125Mg 1 tab PO BID 7 Days #14 tab 05/22/22 [Augmentin 875-125] Ibuprofen [Motrin] 800 mg PO Q6HR PRN #30 tab 05/22/22 Allergies Allergy/AdvReac Type Severity Reaction Status Date / Time No Known Allergies Allergy Verified 05/22/22 10:11 Review of Systems ROS Statement: Those systems with pertinent positive or pertinent negative responses have been documented in the HPI. ROS Other: All systems not noted in ROS Statement are negative. Past Medical History Past Medical History: No Reported History History of Any Multi-Drug Resistant Organisms: None Reported Past Surgical History: Orthopedic Surgery Additional Past Surgical History / Comment(s): left foot re-attachment Past Psychological History: No Psychological Hx Reported Smoking Status: Current every day smoker Past Alcohol Use History: None Reported Past Drug Use History: Marijuana General Exam - General Exam Comments Initial Comments: General: Well-appearing, nontoxic, no acute distress. Head: Normocephalic, atraumatic Eyes: PERRLA, EOMI ENT: Airway patent Chest: Nonlabored breathing Skin: No visual rash, normal skin tone Neuro: Alert and oriented 3 Musculoskeletal: No gross abnormalities Medical Decision Making - Medical Decision Making Was pt. sent in by a medical professional or institution (, PA, DIRECTOR HUMAN SERVICES, urgent care, hospital, or assisted...) When possible be specific @ -No Did you speak to anyone other than the patient for history (EMS, parent, family, police, friend...)? What history was obtained from this source @ -No Did you review nursing and triage notes (agree or disagree)? Why? @ -I reviewed and agree with nursing and triage notes Were old charts reviewed (outside hosp., previous admission, EMS record, old EKG, old radiological studies, urgent care reports/EKG's, assisted records)? Report findings @ -No old charts were reviewed Differential Diagnosis (chest pain, altered mental status, abdominal pain women, abdominal pain men, vaginal bleeding, musculoskeletal, weakness, fever, dyspnea, syncope, headache, dizziness, GI bleed, back pain, seizure, CVA, palpatations, mental health)? @ -Not applicable EKG interpreted by me (3pts min.). @ -None done X-rays interpreted by me (1pt min.). @ -None done CT interpreted by me (1pt min.). @ -None done U/S interpreted by me (1pt. min.). @ -None done What testing was considered but not performed or refused? (CT, X-rays, U/S, labs)? Why? @ -None What meds were considered but not given or refused? Why? @ -None Was smoking cessation discussed for >3mins.? @ -No Were there social determinants of health that impacted care today? How? ( Homelessness, low income, unemployed, alcoholism, drug addiction, transportation, low edu. Level, literacy, decrease access to med. care, fpc, rehab)? @ -No Was there de-escalation of care discussed even if they declined (Discuss DNR or withdrawal of care, Hospice)? DNR status @ -No What co-morbidities impacted this encounter? (DM, HTN, Smoking, COPD, CAD, Cancer, CVA, ARF, Chemo, Hep., AIDS, mental health diagnosis, sleep apnea, morbid obesity)? @ -None Was patient admitted / discharged? Hospital course, mention meds given and route, prescriptions, significant lab abnormalities, going to OR and other pertinent info. @ -63-year-old male presents to the ER for blood draw. He states that he needs his blood work drawn today. Chart review was performed there was some blood testing ordered from December 15 by [employer] consultant requesting lab testing for AST, ALT, hep B and hep C titers. We did speak with lab and blood was drawn and sent to the lab for evaluation. Patient told to follow-up with his [employer] consultant regarding the results. Did you discuss the management of the patient with other professionals (professionals i.e. , PA, DIRECTOR HUMAN SERVICES, lab, RT, psych nurse, social human services assistants, electric motor analyst, teacher, correctional officer lieutenant, showcase trimmer)? Give summary @ -No Was critical care preformed (if so, how long)? @ -No Undiagnosed new problem with uncertain prognosis? @ -No Drug Therapy requiring intensive monitoring for toxicity (Heparin, Nitro, Insulin, Cardizem)? @ -No Were any procedures done? @ -No Diagnosis/symptom? Acute, or Chronic, or Acute on Chronic? Uncomplicated (without systemic symptoms) or Complicated (systemic symptoms)? @ -Blood draw Side effects of treatment? @ -No Exacerbation, Progression, or Severe Exacerbation? @ -No Poses a threat to life or bodily function? How? (Chest pain, [place], [place], pneumonia, PE, COPD, DKA, ARF, appy, cholecystitis, CVA, Diverticulitis, Homicidal, Suicidal, threat to staff... and all critical care pts) @ -No Disposition Clinical Impression: Blood tests prior to treatment or procedure Disposition: HOME SELF-CARE Condition: Good Is patient prescribed a controlled substance at d/c from ED?: No Referrals: Cliff Castillo MD [STAFF PHYSICIAN] - 1-2 days Time of Disposition: 13:21
[2024-01-03 06:57] LABS: Basophils # (A) 0.07 X 10*3/uL (0.00-0.10); Basophils % (A) 1.2 %; Eosinophils # (A) 0.44 X 10*3/uL (0.04-0.35); Eosinophils % (A) 7.3 %; HGB 11.6 g/dL (13.0-17.0); Lymphocytes # (A) 1.61 X 10*3/uL (0.90-5.00); Lymphocytes % (A) 26.6 %; MCH 26.7 pg (27.0-32.0); MCHC 33.1 g/dL (32.0-37.0); MCV 80.5 FL (80.0-97.0); Mean Platelet Volume 13.4 FL (9.5-12.2); Monocytes % (A) 9.9 %; Neutrophils # (A) 3.26 X 10*3/uL (1.80-7.70); Neutrophils % (A) 53.8 %; Platelet Count 231 X 10*3/uL (140-440); RBC 4.35 X 10*6/uL (4.40-5.60); RDW 14.7 % (11.5-14.5); WBC 6.05 X 10*3/uL (4.50-10.00)
[2024-01-03 07:09] LABS: ALT 15 U/L (10-49); AST 19 U/L (14-35)
[2024-01-03 19:52] LABS: Hepatitis B Surface AB- Quant 3.5 mIU/mL
[2024-01-03 21:40] LABS: Hepatitis B Surface Antigen Nonreactive (Nonreactive); Hepatitis C IgG Antibody Nonreactive (Nonreactive)
== END 2024-01-02 13:48 | disposition home or self-care (01) ==
LOC: EC 13:04
DX: Z01.812 Encounter for preprocedural laboratory examination (principal); F17.200 Nicotine dependence, unspecified, uncomplicated
CPT/HCPCS: 36415; 84450; 84460; 85025; 86704; 86706; 86803; 87340; 99282